=== PATIENT | male | born 2005 | race Caucasian/White ===

== ENCOUNTER 2024-11-03 14:15 | Emergency (ER) | payer OTHER, SELFPAY ==
[2024-11-03 14:17] VITALS: BP 140/87
[2024-11-03 14:35] LABS: Hematocrit 39.7 % (39.0-52.0); Hemoglobin 13.6 g/dL (13.0-18.0); Mean Corp Hgb Conc. 34.3 g/dL (33.0-37.0); Mean Corpuscular Volume 87.1 fL (80.0-94.0); Nucleated Red Blood Cells % 0 % (-); Platelet Count 289 10^3/uL (130-400); Red Cell Dist. Width 12.4 % (11.5-14.5)
[2024-11-03 14:57] LABS: ALT (SGPT) 30 U/L (0-50); AST (SGOT) 47 U/L (17-59); Albumin 4.8 g/dl (3.5-5.0); Alkaline Phosphatase 61 U/L (38-126); Blood Urea Nitrogen 18 mg/dl (9-20); Calcium 9.7 mg/dl (8.4-10.2); Carbon Dioxide 24 mmol/L (22-30); Chloride 107 mmol/L (98-107); Glucose 110 mg/dl (70-99); Potassium 4.1 mmol/L (3.5-5.1); Sodium 140 mmol/L (135-145); Total Protein 7.3 g/dl (6.3-8.2); eGFR > 60.00
[2024-11-03 15:08] LABS: Troponin I < 0.012 ng/ml
[2024-11-03 18:33] VITALS: BP 125/79
--- NOTE | 2024-11-03 23:22 | ED.GENMED ---
History of Present Illness
General
Chief Complaint: Chest Pain
Source: patient
Exam Limitations: none
Time Seen by Provider: 11/03/24 17:38
Nursing documentation reviewed up to this point in time: agreed with
History of Present Illness
History of Present Illness:
Patient to ED [facility] complaint of intermittent chest pain. Pain is positional. Denies n/v/diaphoresis. Reports occassionally feeling SOB Brought self to ED for eval.
Past History
Past History
ED Past Medical History: None
ED Past Surgical History: None
Social History
Tobacco: Non-smoker
Alcohol: None
Drug: None
Family History
Family History: Negative Early CAD, CAD or Sudden
Review of Systems
Review of Systems
Allergies reviewed?: Yes
All Other Systems: ROS reviewed and negative except as documented in HPI and ROS
Constitutional: Reports no symptoms
EENT: Reports no symptoms
Respiratory: Reports trouble breathing (intermittent)
Cardiac: Reports chest pain (intermittent, positional)
ABD/GI: Reports no symptoms
: Reports no symptoms
Musculoskeletal: Reports no symptoms
Skin: Reports no symptoms
Neurological: Reports no symptoms
Psychiatric: Reports no symptoms
Phy Exam
General Physical Exam
General Presentation: well appearing and no apparent distress
General age: appears stated age
General Skin: warm and dry
General Habitus: normal
General Mental: alert
Cardiovascular Exam
Cardiovascular Exam: regular rate/rhythm and no edema
Pulmonary Exam
Pulmonary Exam: lungs clear, no respiratory distress and chest non tender
Gastrointestinal Exam
Gastrointestinal Exam: normal bowel sounds, non tender and soft
Musculoskeletal Exam
Musculoskeletal Exam: full ROM and neuro vasc intact
Skin Exam
Skin Exam: normal color, warm/dry and no rash
Psychiatric Exam
Psychiatric Exam: normal mood/affect
Scores
Heart Score for Chest Pain Patients
STEMI patient?: No
History: Slightly or Non-Suspicious
ECG: Normal
Age: </= 45 years
Risk Factors: No Risk Factors
Troponin: </= Normal Limit
Heart Score for Chest Pain Patients: 0
Heart Score Risk: 2.5% MACE over next 6 weeks
Course
Orders/Labs/Results
Orders:
Orders
11/03/24 14:21
Electrocardiogram (*1) Urgent
Reason for Study: Chest Pain
EKG- Treatment ONCE
11/03/24 14:28
Complete Blood Count/With Diff Urgent
Comprehensive Metabolic Panel Urgent
Troponin I Urgent
11/03/24 17:39
CR Chest - 2 Views Urgent
Comment:
Reason For Exam: chest pain
Abnormal Lab Results
11/03/24
14:28
RBC 4.56 L 10^6/uL
(4.70-6.10)
Absolute Neuts (auto) 7.9 H 10^3/uL
(1.4-6.5)
Absolute Monos (auto) 0.8 H 10^3/uL
(0.1-0.6)
Neutrophils % 76.0 H %
(42.2-75.2)
Lymphocytes % 14.9 L %
(20.5-51.1)
Glucose 110 H mg/dl
(70-99)
11/03/24 14:28
11/03/24 14:28
Vital Signs
Initial and Last Documented VS:
Initial Vital Signs
Temp Pulse Resp BP Pulse Ox
98.7 F 105 18 140/87 97
11/03/24 14:17 11/03/24 14:17 11/03/24 14:17 11/03/24 14:17 11/03/24 14:17
Last Documented Vital Signs
Temp Pulse Resp BP Pulse Ox
98.7 F 88 18 125/79 98
11/03/24 14:17 11/03/24 18:33 11/03/24 18:33 11/03/24 18:33 11/03/24 23:23
*Radiology
Radiology exam reviewed: radiology read reviewed
*Pulse Oximetry
SaO2: 98
Oxygen Mode of Delivery: Room air
Patient hypoxic: no
*Critical Care Note
Total Time (30-74mins, 75-104mins- exclusive of procedures): Not Applicable
Update Note
Update Note:
Patient to ED with complant of intermittent chest pain and SOB. Symptoms started a few months ago. VSS, he remains afebrile. Pulse ox 99% RA. CBC/CMP WNL. EKG NSR. CXR NAD. No concerning findings on exam. Doubtful for cardiac etiology,
especially as pain is positional but will need further evaluation. WIll discharge home and he will follow up [facility] PCP. Currently playing college football. I requested that he follow up with jen on Tuesday before continuing football, evaluation
with cardiology, echo. Patient is agreeable to plan. He was given instructions on s/s to return to ED and he is agreeable to plan.
ED Attending Note
-
Portions of this chart may have been created with voice recognition software.� Occasional wrong word or��sound alike� substitutions may have occurred due to the inherent limitations of voice recognition software.
Discharge Plan
Departure
Patient Disposition: Home (Routine Discharge)
Date of Disposition: 11/03/24
Time of Disposition: 18:27
Patient with high blood pressure during this ER visit?: No
Condition: Good
Covid-19: Not Applicable
Discharge Problem:
Chest pain in adult
Instructions: Chest Pain That Is Not Caused by the Heart (DC)
Referrals:
Humberto Barrios MD [Active, Cardiology] - Next open appointment
NONE,* [Family Provider, Internal Medicine]
Activity Restrictions/Additional Instructions:
Return to the emergency department immediately for any changes in/worsening of your symptoms
Interventions
Interventions:
*Risk Screen - Suicide Last Done: 11/03/24 14:17
*General Assessment Last Done: 11/03/24 18:34
*Neglect/Abuse Screening Last Done: 11/03/24 18:34
*ED- Fall Risk Assessment Last Done: 11/03/24 18:34
*ED COVID-19 Vaccine History Last Done: 11/03/24 18:34
*Nursing Disposition Last Done: 11/03/24 18:34
ED- Cardiac Assessment Last Done: 11/03/24 18:33
Discharge Date and Time
Discharge Date/Time: 11/03/24 18:35
Print Language: DOMINICAN
== END 2024-11-03 18:35 | disposition home or self-care (01) ==
LOC: EMR 14:15
PROVIDERS: Emergency Medicine; EMERGENCY PHYSICIAN Emergency Medicine
DX: R07.89 Other chest pain (principal); R06.02 Shortness of breath
CPT/HCPCS: 99285; 71046; 80053; 84484; 85025; 93005

== ENCOUNTER → 2024-11-08 18:01 | Outpatient (REF) | payer OTHER, SELFPAY | LOC: RCS 18:01 | PROVIDERS: ATTENDING PHYSICIAN Internal Medicine Cardiovascular Disease | DX: R07.89 Other chest pain (principal) | CPT/HCPCS: 93306 ==

== ENCOUNTER → 2024-11-28 07:35 | Outpatient (REF) | payer OTHER, SELFPAY | LOC: RCS 07:35 | PROVIDERS: ATTENDING PHYSICIAN Internal Medicine Cardiovascular Disease | DX: R07.2 Precordial pain (principal); R06.00 Dyspnea, unspecified | CPT/HCPCS: 93017 ==